=== PATIENT | male | born 1940 | race Caucasian/White ===

== ENCOUNTER → 2016-08-07 | Outpatient (CLI) | payer MEDICARE, OTHER ==
--- NOTE | 2016-08-07 11:12 | RADIOLOGY REPORT (SQ) ---
EXAM DESCRIPTION: CTA ABDOMEN/PELVIS W WO COMPLETED DATE/TIME: 08/07/2016 8:22 am REASON FOR STUDY: THORACIC AORTIC ANEURYSM, WITHOUT RUPTURE (I71.2) I71.2 THORACIC AORTIC ANEURYSM, WITHOUT RUPTURE COMPARISON: CT of the abdomen pelvis dated November 2012 TECHNIQUE: CT scan of the abdominal aorta extending to the iliac bifurcation performed with and with out intravenous contrast using helical scanning technique with dynamic intravenous contrast injection . Images reviewed with lung, soft tissue, and bone windows. Reconstructed coronal and sagittal MPR im ages reviewed. All images stored on PACS. Advanced 3D imaging as volume rendering, MIPS, SSD performed? yes All CT scanners at this facility use dose modulation, iterative reconstruction, and/or weight based d osing when appropriate to reduce radiation dose to as low as reasonably achievable (ALARA). [facility]: Dose Right [facility]: CareDose [facility]: Dose Right [facility]: Teradose 4D [facility]: Verosee CONTRAST TYPE AND DOSE: 56 Isovue 370- low osmolar. RENAL FUNCTION: Creatinine 0.9 LIMITATIONS: None. FINDINGS: NON-CONTRASTED IMAGING: No significant renal or bladder calcifications. No other significa nt organ calcifications. Couple tiny calcified gallstones are identified. POST-CONTRAST IMAGING: AORTA AND VESSELS: Patient is status post endovascular repair of an abdominal aortic aneurysm. The e ndograft is patent without evidence for an endograft leak. LUNG BASES: No significant findings. No nodules or infiltrates. LIVER: Normal size. No masses or dilated ducts. SPLEEN: Normal size. No focal lesions. PANCREAS: No masses. No significant calcifications. No adjacent inflammation or peripancreatic fluid collections. Pancreatic duct not dilated. GALLBLADDER: Couple small calcified gallstones are identified. No inflammatory changes to suggest cho lecystitis. ADRENAL GLANDS: No significant masses or asymmetry. RIGHT KIDNEY AND URETER: A small right renal mass is identified measuring 1.2 x 1.5 cm in diameters s uspicious for a renal neoplasm. LEFT KIDNEY AND URETER: A left renal mass is identified measuring 3.4 x 3.0 cm in diameter suspicious for a renal neoplasm. Couple tiny cortical cysts in the upper pole appear stable. RETROPERITONEUM: No retroperitoneal adenopathy, hemorrhage or masses. BOWEL AND PERITONEAL CAVITY: No masses or inflammatory changes. No free fluid or peritoneal masses. Postsurgical changes are identified involving the stomach and duodenum with an apparent gastrojejunos mayank. APPENDIX: Normal. ABDOMINAL WALL: No masses. No hernias. BONY STRUCTURES: No significant or acute findings. 3-D IMAGING: Confirms the above findings. OTHER: Bladder is not well evaluated due to its relative non distended state. IMPRESSION: Status post endovascular repair of an abdominal aortic aneurysm. The endograft appears patent. No evidence for an endograft leak is seen. Tiny gallstones. Small bilateral renal mass les ions as noted above suspicious for renal neoplasms. MRI may be of value for further evaluation. Oth er findings as noted above TECHNICAL DOCUMENTATION: JOB ID: [id number] Quality ID # [id number]: Final reports with documentation of one or more dose reduction techniques (e.g., Au tomated exposure control, adjustment of the mA and/or kV according to patient size, use of iterative reconstruction technique) 2010 [employer]- All Rights Reserved
== END ==
LOC: RAD 07:23
PROVIDERS: ATTEND Internal Medicine Cardiovascular Disease
DX: I71.2 Thoracic aortic aneurysm, without rupture (principal); K80.80 Other cholelithiasis without obstruction
CPT/HCPCS: 74174; 82565

== ENCOUNTER → 2016-08-23 | Outpatient (CLI) | payer MEDICARE, OTHER | LOC: RAD 07:47 | PROVIDERS: ATTEND Internal Medicine Cardiovascular Disease | DX: D49.519 Neoplasm of unspecified behavior of unspecified kidney (principal); Z53.21 Procedure and treatment not carried out due to patient leaving prior to being seen by health care provider ==

== ENCOUNTER → 2017-05-03 | Outpatient (CLI) | payer MEDICARE, OTHER ==
[2017-05-05 07:46] LABS: HELICOBACTER PYLORI IGA AB >35.0 units (0.0-8.9); HELICOBACTER PYLORI IGG AB 2.17 (0.00-0.79); HELICOBACTER PYLORI IGM AB <9.0 units (0.0-8.9)
== END ==
LOC: OD 08:24
PROVIDERS: ATTEND Physician Assistant Surgical
DX: K31.89 Other diseases of stomach and duodenum (principal); R12 Heartburn
CPT/HCPCS: 36415; 86677